=== PATIENT | male | born 1970 | race Caucasian/White ===

== ENCOUNTER 2019-11-01 09:29 | Emergency (ER) | payer BC ==
[2019-11-01 11:19] LABS: #Basophils 0.1 thou/uL (0.0-0.2); #Eosinphils 0.1 thou/uL (0.0-0.7); #Lymphocytes 3.3 thou/uL (1.20-3.40); #Monocytes 0.7 thou/uL (0.11-0.59); #Neutrophils 7.7 thou/uL (1.40-6.50); %Basophils 0.5 % (0.0-1.0); %Lymphocytes 27.9 % (21.0-51.0); %Monocytes 5.9 % (0.0-10.0); %Neutrophils 64.7 % (42.0-75.0); Hemoglobin 15.8 g/dL (14.0-18.0); Mean Corpuscular HGB CONC 34.6 g/dL (32.0-36.0); Mean Corpuscular Hemoglobin 32.3 pg (27.0-31.0); Mean Corpuscular Volume 93.5 fL (78.0-98.0); Mean Platelet Volume 9.2 fL (7.4-10.4); Platelet Count 228 thou/uL (130-400); RBC Distribution Width 12.5 % (11.5-14.5); Red Blood Cell (RBC) Count 4.89 mill/uL (4.70-6.10); White Blood Cell (WBC) Count 11.9 thou/uL (4.8-10.8)
[2019-11-01] MEDS ORDERED: Morphine 4 MG/ML VIAL ONE (11:31)
[2019-11-01] MEDS ORDERED: Ketorolac Tromethamine 30 MG/ML VIAL ONE (11:31)
[2019-11-01] MEDS ORDERED: Acetaminophen 500 MG TAB ONE (11:31)
[2019-11-01 11:52] LABS: Bilirubin Negative (Negative); Blood, Urine Negative (Negative); Clarity Clear (Clear); Glucose, Urine (Dipstick) Normal (Negative); Leukocyte Negative Leu/uL (Negative); Nitrite Negative (Negative); Protein, Urine (Dipstick) Negative (Neg-Trace); Urobilinogen Normal mg/dL (Less than 2)
[2019-11-01 12:00] LABS: ALT (SGPT) 22 U/L (8-55); AST (SGOT) 18 U/L (5-34); Albumin 4.3 g/dL (3.5-5.0); Alkaline Phosphatase 105 U/L (40-110); Anion Gap 10 mmol/L (10-20); BUN (Urea Nitrogen) 13 mg/dL (8.9-20.6); Bilirubin, Total 0.3 mg/dL (0.2-1.2); Calc. Creatinine Clearance 0 mL/min (70-130); Calcium 9.6 mg/dL (7.8-10.44); Carbon Dioxide 27 mmol/L (22-29); Chloride 104 mmol/L (98-107); Estimated GFR-MDRD 83; Globulin 2.8 g/dL (2.4-3.5); Glucose 95 mg/dL (70-105); Lipase 20 U/L (8-78); Potassium 4.2 mmol/L (3.5-5.1); Protein, Total 7.1 g/dL (6.0-8.3); Sodium 137 mmol/L (136-145)
== END 2019-11-01 13:32 | disposition home or self-care (01) ==
LOC: ERS 09:29
DX: M54.5 Low back pain (principal); F17.210 Nicotine dependence, cigarettes, uncomplicated
CPT/HCPCS: 80053; 81003; 83690; 85025; 96361; 96374; 96375; J1885; J2270

== ENCOUNTER 2024-04-24 08:10 | Outpatient (CLI) | payer BC | END 2024-04-24 08:11 | disposition home or self-care (01) | LOC: BICCT 08:10 | PROVIDERS: ATTEND Family Medicine | DX: F17.210 Nicotine dependence, cigarettes, uncomplicated (principal); Z12.2 Encounter for screening for malignant neoplasm of respiratory organs | CPT/HCPCS: 71271 ==

== ENCOUNTER 2024-10-06 17:29 | Observation (INO) | payer BC ==
[~2024-10-06 17:29] MED LIST: Iopamidol-370 76% 500 ML MDV (1 ML CHARGE) ONE
[2024-10-06 18:03] LABS: #Basophils 0.04 10x3/uL (0.0-0.2); #Eosinophils Less than 0.03 10x3/uL (0.0-0.7); %Basophils 0.3 % (0.0-1.0); %Eosinophils 0.2 % (0.0-10.0); %Lymphocytes 13.7 % (21.0-51.0); %Monocytes 8.1 % (0.0-10.0); %Neutrophils 77.1 % (42.0-75.0); Hematocrit 51.4 % (42.0-52.0); Hemoglobin 17.2 g/dL (14.0-18.0); Mean Corpuscular HGB CONC 33.5 g/dL (32.0-36.0); Mean Corpuscular Hemoglobin 30.9 pg (27.0-31.0); Mean Corpuscular Volume 92.4 fL (78.0-98.0); Platelet Count 230 10x3/uL (130-400); RBC Distribution Width 13.7 % (11.5-14.5); Red Blood Cell (RBC) Count 5.56 mill/uL (4.70-6.10)
[2024-10-06] MEDS ORDERED: Nitroglycerin 2% Ointment 1 INCH/1 GM Packet ONE (18:04)
[2024-10-06] MEDS ORDERED: Aspirin Chewable 81 MG TAB ONE (18:04)
[2024-10-06] MEDS ORDERED: Pantoprazole 40 MG VIAL ONE (18:04)
[2024-10-06 18:22] LABS: ALT (SGPT) 29 U/L (8-55); AST (SGOT) 22 U/L (5-34); Albumin 4.1 g/dL (3.5-5.0); Alkaline Phosphatase 120 U/L (40-110); Anion Gap 17 mmol/L (10-20); BUN (Urea Nitrogen) 12 mg/dL (8.4-25.7); Bilirubin, Total 0.2 mg/dL (0.2-1.2); Calc. Creatinine Clearance 0 mL/min (70-130); Calcium 9.9 mg/dL (7.8-10.44); Carbon Dioxide 23 mmol/L (22-29); Chloride 105 mmol/L (98-107); Estimated GFR 84; Globulin 3.8 g/dL (2.4-3.5); Glucose 123 mg/dL (70-105); Potassium 3.6 mmol/L (3.5-5.1); Protein, Total 7.9 g/dL (6.0-8.3); Sodium 141 mmol/L (136-145)
[2024-10-06 18:27] LABS: Troponin I Less than 0.010 ng/mL (< 0.028)
[2024-10-06] MEDS ORDERED: fentaNYL 50 mcg/mL 1 mL Vial ONE (18:46)
[2024-10-06] MEDS ORDERED: Morphine 4 MG/ML VIAL ONE (19:19)
[2024-10-06] MEDS ORDERED: Senokot S 8.6-50 MG TAB PO PRN (20:40)
[2024-10-06] MEDS ORDERED: Ondansetron ODT 4 MG TAB PO PRN (20:40)
[2024-10-06] MEDS ORDERED: Calcium Carbonate 500 MG ChewTAB PO PRN (20:40)
[2024-10-06] MEDS ORDERED: Nitroglycerin 0.4 MG TAB (25 Tab Bottle) SL PRN (20:40)
[2024-10-06] MEDS ORDERED: Acetaminophen 325 MG TAB PO PRN (20:40)
[2024-10-06] MEDS ORDERED: Ondansetron PF 4 MG/2 ML Vial IVP PRN (20:40)
[2024-10-06] MEDS ORDERED: Acetaminophen 650 MG Suppository PR PRN (20:40)
[2024-10-06] MEDS ORDERED: Albuterol 2.5 MG (3 mL) NEB NEB PRN (20:46)
[2024-10-06 21:11] LABS: Troponin I Less than 0.010 ng/mL (< 0.028)
[2024-10-06 22:06] VITALS: BMI 35.2
[2024-10-06] MEDS: Famotidine 20 MG TAB PO SCH (22:19)
[2024-10-06] MEDS: methylPREDNISolone Sod Succ 40 MG VIAL IVP SCH (22:19)
[2024-10-06] MEDS: Oxymetazoline HCl 0.05% (30 ML BOT) NS SCH (22:29)
[2024-10-06] MEDS: Ipratropium/Albuterol 3 ML NEB NEB SCH (23:42)
[2024-10-07] MEDS: Ketorolac Tromethamine 30 MG (1 mL) VIAL IVP SCH
[2024-10-07 01:06] LABS: Troponin I Less than 0.010 ng/mL (< 0.028)
[2024-10-07 01:53] LABS: Influenza A by NAA DETECTED (NotDetected); Influenza B by NAA Not Detected (NotDetected); RSV by NAA Not Detected (NotDetected); SARS-CoV-2 NAA Rapid Test Not Detected (NotDetected)
[2024-10-07] MEDS: LevoFLOXacin 750 MG TAB PO SCH (05:28)
[2024-10-07 06:10] LABS: #Basophils Less than 0.03 10x3/uL (0.0-0.2); #Eosinophils Less than 0.03 10x3/uL (0.0-0.7); %Basophils 0.1 % (0.0-1.0); %Lymphocytes 11.9 % (21.0-51.0); %Monocytes 5.5 % (0.0-10.0); Hematocrit 44.9 % (42.0-52.0); Hemoglobin 14.9 g/dL (14.0-18.0); Mean Corpuscular HGB CONC 33.2 g/dL (32.0-36.0); Mean Corpuscular Hemoglobin 30.7 pg (27.0-31.0); Mean Corpuscular Volume 92.6 fL (78.0-98.0); Mean Platelet Volume 11.6 fL (7.4-10.4); Platelet Count 189 10x3/uL (130-400); RBC Distribution Width 14.1 % (11.5-14.5); Red Blood Cell (RBC) Count 4.85 mill/uL (4.70-6.10)
[2024-10-07 06:47] LABS: ALT (SGPT) 23 U/L (8-55); AST (SGOT) 17 U/L (5-34); Albumin 3.4 g/dL (3.5-5.0); Alkaline Phosphatase 101 U/L (40-110); Anion Gap 15 mmol/L (10-20); BUN (Urea Nitrogen) 12 mg/dL (8.4-25.7); Bilirubin, Total 0.2 mg/dL (0.2-1.2); Calc. Creatinine Clearance 147 mL/min (70-130); Calcium 8.8 mg/dL (7.8-10.44); Carbon Dioxide 22 mmol/L (22-29); Chloride 108 mmol/L (98-107); Estimated GFR 89; Globulin 3.1 g/dL (2.4-3.5); Glucose 126 mg/dL (70-105); Potassium 4.6 mmol/L (3.5-5.1); Protein, Total 6.5 g/dL (6.0-8.3); Sodium 140 mmol/L (136-145)
[2024-10-07] MEDS ORDERED: Docusate 100 MG CAP PO PRN (08:23)
[2024-10-07] MEDS ORDERED: Polyethylene Glycol 3350 17 GM Packet PO PRN (08:23)
[2024-10-07] MEDS: Aspirin Chewable 81 MG TAB PO SCH (08:32)
[2024-10-07] MEDS: Oseltamivir 75 MG CAP PO SCH (08:32)
[2024-10-07] MEDS: Docusate 100 MG CAP PO SCH (10:18)
[2024-10-07] MEDS: Polyethylene Glycol 3350 17 GM Packet PO SCH (10:18)
[2024-10-08 08:07] VITALS: BP 138/90; TEMP 98.2
[2024-10-08] MEDS: Ipratropium/Albuterol 3 ML NEB NEB PRN (08:30)
== END 2024-10-08 10:45 | disposition home or self-care (01) ==
LOC: ERS 17:29 → OBS 19:37
PROVIDERS: ADMIT Internal Medicine; ATTEND Internal Medicine
PROC: B24BZZZ Ultrasonography of Heart with Aorta (ICD-10-PCS; principal; 2024-10-07)
DX: R07.89 Other chest pain (principal); J10.1 Influenza due to other identified influenza virus with other respiratory manifestations; J44.1 Chronic obstructive pulmonary disease with (acute) exacerbation; J32.9 Chronic sinusitis, unspecified; E78.5 Hyperlipidemia, unspecified; E04.1 Nontoxic single thyroid nodule; F17.200 Nicotine dependence, unspecified, uncomplicated; Z79.51 Long term (current) use of inhaled steroids; Z79.899 Other long term (current) drug therapy
CPT/HCPCS: 0241U; 36415; 71045; 71275; 74174; 80053; 83735; 83880; 84443; 84484; 85025; 93005; 93306; 94640; 94760; 96374; 96375; 96376; G0378; J1885; J2272; J2470; J2919; J3010; J7620; Q9967